=== PATIENT | male | born 1970 ===

== ENCOUNTER 2024-07-26 06:26 | Day surgery (SDC) | payer BC, SELFPAY | END 2024-07-26 10:35 | disposition home or self-care (01) | LOC: GI 06:26 | PROVIDERS: ATTENDING PHYSICIAN Internal Medicine | DX: Z12.11 Encounter for screening for malignant neoplasm of colon (principal); D12.4 Benign neoplasm of descending colon; C20 Malignant neoplasm of rectum | CPT/HCPCS: 45385; 45380; 88305; 88342 ==

== ENCOUNTER 2024-10-26 06:14 | Day surgery (SDC) | payer BC, SELFPAY | END 2024-10-26 13:19 | disposition home or self-care (01) | LOC: GI 06:14 | PROVIDERS: ATTENDING PHYSICIAN Internal Medicine; FAMILY PHYSICIAN Family Medicine | DX: Z12.11 Encounter for screening for malignant neoplasm of colon (principal); K64.8 Other hemorrhoids; K63.5 Polyp of colon; Z85.038 Personal history of other malignant neoplasm of large intestine | CPT/HCPCS: 45388; 88305 ==

== ENCOUNTER 2025-02-07 06:25 | Day surgery (SDC) | payer BC, SELFPAY | END 2025-02-07 09:19 | disposition home or self-care (01) | LOC: GI 06:25 | PROVIDERS: ATTENDING PHYSICIAN Internal Medicine | DX: C20 Malignant neoplasm of rectum (principal); K63.5 Polyp of colon; K62.89 Other specified diseases of anus and rectum; K64.8 Other hemorrhoids | CPT/HCPCS: 45331; 88305 ==

== ENCOUNTER → 2025-03-29 12:28 | Outpatient (REF) | payer BC, SELFPAY | LOC: MRI 12:28 | PROVIDERS: ATTENDING PHYSICIAN Internal Medicine; FAMILY PHYSICIAN Family Medicine | DX: C20 Malignant neoplasm of rectum (principal) | CPT/HCPCS: 72197; A9575 ==